=== PATIENT | female | born 1980 | race Caucasian/White ===

== ENCOUNTER 2017-02-07 21:43 | Observation (INO) | payer OTHER ==
[~2017-02-07] VITALS: Ht 180.3 cm; Wt 94.3 kg
[2017-02-08 03:23] VITALS: BP 145/72
[2017-02-08 08:00] VITALS: BP 118/75
[2017-02-08 12:50] VITALS: BP 119/76
--- NOTE | 2017-02-08 14:08 | Provider's Discharge Care Plan ---
Problem, Goal, Plan Problem List 1. Retained placenta Goals: Improved health/wellness Instructions: Follow up as directed
--- NOTE | 2017-02-08 14:08 | Provider's Discharge Care Plan ---
Problem, Goal, Plan Problem List 1. Retained placenta Goals: Improved health/wellness Instructions: Follow up as directed
[2017-02-08 18:06] VITALS: BP 117/71
== END 2017-02-08 18:40 | disposition home or self-care (01) ==
LOC: OB SRH 21:43
PROVIDERS: ADMIT Legal Medicine
PROC: 10D17ZZ Extraction of Products of Conception, Retained, Via Natural or Artificial Opening (ICD-10-PCS; principal; 2017-02-08)
DX: O72.2 Delayed and secondary postpartum hemorrhage (principal)
CPT/HCPCS: 29250; 29251; 29253; 40003; 40021